=== PATIENT | female | born 1940 | race Caucasian/White ===

== ENCOUNTER 2024-05-09 16:01 | Inpatient (IN) | payer MEDICARE, OTHER ==
[~2024-05-09] VITALS: Ht 165.1 cm; Wt 81.2 kg
[2024-05-09 16:29] LABS: BASOPHILS # (AUTO) 0.1 K/uL (0.0-0.2); BASOPHILS % (AUTO) 0.4 % (0.0-2.0); HEMATOCRIT 41 % (33-45); HEMOGLOBIN 13.3 g/dL (11.5-14.8); LYMPHOCYTES # (AUTO) 1.8 K/uL (0.8-4.8); LYMPHOCYTES % (AUTO) 12.1 % (20.0-44.0); MEAN CORPUSCULAR HEMOGLOBIN 28 PG (26.0-33.0); MEAN CORPUSCULAR HGB CONC 32 g/dl (31.0-36.0); MEAN CORPUSCULAR VOLUME 87 fL (82-100); MONOCYTES # (AUTO) 1.1 K/uL (0.1-1.30); MONOCYTES % (AUTO) 7.5 % (2.0-12.0); NEUTROPHILS # (AUTO) 12.1 K/uL (1.8-8.9); PLATELET COUNT (AUTO) 305 K/uL (150-450); RED BLOOD CELL COUNT(AUTO) 4.72 MIL/uL (4.0-5.2); RED CELL DISTRIBUTION WIDTH 15.3 % (11.5-15.0); WHITE BLOOD COUNT (AUTO) 15.1 K/uL (4.3-11.0)
[2024-05-09 16:42] LABS: CALCIUM, SERUM 8.9 mg/dL (8.5-10.1); CHLORIDE 90 mmol/L (98-107); CREATININE 0.4 mg/dL (0.6-1.3); GLUCOSE 111 mg/dL (74-106); SODIUM SERUM 138 mmol/L (136-145); UREA NITROGEN, BLOOD 16 mg/dL (7-18)
[2024-05-09 16:48] LABS: ABG BASE EXCESS 18.3 mmol/L; ABG OXYGEN SATURATION 90.6 % (92.0-98.5); ABG PCO2 55.4 mmHg (35.0-45.0); ABG PH 7.521 (7.350-7.450); ABG PO2 57.6 mmHg (75.0-100.0); ABG TOTAL HEMOGLOBIN 14.4 G/dL (12.0-16.0); COHb 0.4 % (0.5-1.5); MetHb 0.4 % (0.0-1.5); O2Hb 89.9 % (94.0-97.0); SITE, ABG Right Radial; VENT MODE, BG 3 LPM NC
[2024-05-09 16:49] LABS: LACTIC ACID 1.5 mmol/L (0.4-2.0)
[2024-05-09 16:55] LABS: NT-PRO BNP 1022 pg/mL (0-125)
[2024-05-09 16:57] LABS: POTASSIUM 2.7 mmol/L (3.5-5.1)
[2024-05-09 16:58] LABS: CARBON DIOXIDE 47 mmol/L (21-32)
[2024-05-09] MEDS ORDERED: VANCOMYCIN 1 GM /D5W 250 ML PB IV ONE (17:49)
[2024-05-09] MEDS ORDERED: CEFEPIME 1 GM VIAL ONE (17:49)
[2024-05-09] MEDS: CEFEPIME 1 GM in IV D5W 50 ML IV ONE (18:00)
[2024-05-09] MEDS ORDERED: IV NS 0.9% 250 ML IV ONE (18:10)
[2024-05-09] MEDS ORDERED: IOHEXOL-300 100 ML VIAL IV ONE (18:10)
[2024-05-09] MEDS ORDERED: ONDANSETRON HCL/PF 4 MG/2 ML VIAL IVP PRN (18:30)
[2024-05-09] MEDS ORDERED: MORPHINE SULFATE INJ 2 MG/ML DISP.SYRIN IV PRN (18:30)
[2024-05-09] MEDS ORDERED: hydrALAZINE HCL IV 20 MG VIAL IV PRN (18:30)
[2024-05-09] MEDS ORDERED: ALBUTEROL FS 2.5 MG/0.5 ML VIAL.NEB NEB PRN (18:30)
[2024-05-09 18:33] LABS: ALBUMIN 2.1 g/dL (3.4-5.0); BILIRUBIN,DIRECT 0.4 mg/dL (0.0-0.2); BILIRUBIN,TOTAL 0.4 mg/dL (0.2-1.0); TOTAL PROTEIN, SERUM 6.5 g/dL (6.4-8.2)
[2024-05-09] MEDS: VANCOMYCIN 1 GM in IV D5W 250 ML IV ONE (18:53)
[2024-05-09] MEDS ORDERED: LORA-259 PO ×2 (19:08)
[2024-05-09] MEDS ORDERED: SENN-261 PO (19:08)
[2024-05-09] MEDS ORDERED: FURO40TA5 PO (19:08)
[2024-05-09] MEDS ORDERED: MELA10CA PO (19:08)
[2024-05-09] MEDS ORDERED: OMEP20CA15 PO (19:08)
[2024-05-09] MEDS ORDERED: ACET-73 PO (19:08)
[2024-05-09] MEDS ORDERED: METO50TA16 PO (19:08)
[2024-05-09] MEDS ORDERED: GABA300C PO (19:08)
[2024-05-09] MEDS ORDERED: ALBU2TAB4 PO (19:08)
[2024-05-09] MEDS ORDERED: ASPI-1420 PO (19:08)
[2024-05-09 19:10] LABS: INR 1.21 (0.91-1.10); PARTIAL THROMBOPLASTIN TIME 25.6 SEC (24.3-34.3); PROTHROMBIN TIME 12.7 SECS (9.2-11.1)
[2024-05-09] MEDS ORDERED: SENNOSIDES 8.6 MG TABLET PO PRN (19:30)
[2024-05-09] MEDS ORDERED: LORAZEPAM 1 MG TABLET PO PRN (19:30)
[2024-05-09] MEDS: FUROSEMIDE 20 MG/2 ML VIAL IV SCH (19:30)
[2024-05-09 19:50] VITALS: BP 99/65; TEMP 98.8; O2SAT 95
[2024-05-09 20:25] VITALS: O2SAT 97
[2024-05-09] MEDS: IPRATROPIUM NEB FS 0.5 MG/2.5 ML AMPUL.NEB NEB SCH (20:26)
[2024-05-09] MEDS: ALBUTEROL FS 2.5 MG/0.5 ML VIAL.NEB NEB SCH (20:27)
[2024-05-09 20:40] VITALS: O2SAT 99
[2024-05-09] MEDS: methylPREDNISolone SOD SUCC 40 MG/ML VIAL IV SCH (21:53)
[2024-05-09] MEDS: HEPARIN SODIUM, PORCINE 5000 UNITS/1 ML VIAL SQ SCH (21:54)
[2024-05-09] MEDS ORDERED: Medication Not On Formulary EA (Melatonin 10 MG) PO SCH (22:00)
[2024-05-09 22:33] LABS: APPEARANCE,URINE CLEAR (CLEAR); BILIRUBIN,URINE NEGATIVE (NEGATIVE); BLOOD, URINE NEGATIVE Ery/uL (NEGATIVE); COLOR,URINE DARK YELLOW (YELLOW); KETONES,URINE NEGATIVE (NEGATIVE); LEUKOCYTE ESTERASE ,URINE 2+ (NEGATIVE); NITRITE, URINE POSITIVE (NEGATIVE); PROTEIN,URINE NEGATIVE (NEGATIVE); UGLUCOSE NEGATIVE (NEGATIVE)
[2024-05-09] MEDS: POTASSIUM CHLORIDE 20 MEQ POWDER PACKET PO ONE (22:47)
[2024-05-09 22:48] LABS: ADD URINE CULTURE YES; BACTERIA,URINE Moderate /HPF (None Seen); RBC,URINE 0-2 /HPF (0-2); SQUAMOUS EPITHELIAL CELL,UR Rare /HPF (None Seen)
[2024-05-10] VITALS (11 sets, daily range): BP systolic 90–125; BP diastolic 68–79; TEMP 97.7–98.6; O2SAT 90–99
[2024-05-10] MEDS: CEFEPIME 1 GM in IV D5W 50 ML IV SCH (05:26)
[2024-05-10 07:16] LABS: HEMATOCRIT 39 % (33-45); HEMOGLOBIN 12.6 g/dL (11.5-14.8); LYMPHOCYTES # (AUTO) 0.8 K/uL (0.8-4.8); LYMPHOCYTES % (AUTO) 6.1 % (20.0-44.0); MEAN CORPUSCULAR HEMOGLOBIN 28 PG (26.0-33.0); MEAN CORPUSCULAR HGB CONC 33 g/dl (31.0-36.0); MEAN CORPUSCULAR VOLUME 86 fL (82-100); MONOCYTES # (AUTO) 0.4 K/uL (0.1-1.30); MONOCYTES % (AUTO) 2.7 % (2.0-12.0); NEUTROPHILS # (AUTO) 12.4 K/uL (1.8-8.9); NEUTROPHILS % (AUTO) 91.2 % (43.0-81.0); PLATELET COUNT (AUTO) 239 K/uL (150-450); RED BLOOD CELL COUNT(AUTO) 4.46 MIL/uL (4.0-5.2); RED CELL DISTRIBUTION WIDTH 15.2 % (11.5-15.0); WHITE BLOOD COUNT (AUTO) 13.6 K/uL (4.3-11.0)
[2024-05-10 07:36] LABS: ALANINE AMINOTRANSFERASE 155 U/L (12-78); ALKALINE PHOSPHATASE 85 U/L (46-116); ASPARTATE AMINOTRANSFERASE 148 U/L (15-37); BILIRUBIN,TOTAL 0.8 mg/dL (0.2-1.0); CALCIUM, SERUM 9.4 mg/dL (8.5-10.1); CHLORIDE 92 mmol/L (98-107); CREATININE 0.3 mg/dL (0.6-1.3); GLUCOSE 165 mg/dL (74-106); MAGNESIUM 2.2 mg/dL (1.8-2.4); PHOSPHORUS 2.8 mg/dL (2.5-4.9); SODIUM SERUM 136 mmol/L (136-145); TOTAL PROTEIN, SERUM 6.2 g/dL (6.4-8.2); UREA NITROGEN, BLOOD 13 mg/dL (7-18)
[2024-05-10 07:38] LABS: CARBON DIOXIDE 41 mmol/L (21-32)
[2024-05-10] MEDS: GABAPENTIN 300 MG CAPSULE PO SCH (09:24)
[2024-05-10] MEDS: PANTOPRAZOLE 40 MG TABLET.DR PO SCH (09:24)
[2024-05-10] MEDS: ASPIRIN EC 81 MG TABLET.DR PO SCH (09:25)
[2024-05-10] MEDS: METOPROLOL SUCCINATE 50 MG TAB.SR.24H PO SCH (09:26)
[2024-05-10] MEDS: THERAHONEY GEL 1.5 OZ TUBE TP SCH (10:19)
[2024-05-10] MEDS: ACETAMINOPHEN 325 MG TABLET PO PRN (10:51)
[2024-05-10] MEDS: POTASSIUM CHLORIDE 20 MEQ TAB.PRT.SR PO SCH (11:37)
[2024-05-10] MEDS: DILTIAZEM HCL CD 240 MG PO SCH (11:38)
[2024-05-10] MEDS ORDERED: LORAZEPAM 0.5 MG TABLET PO PRN (15:30)
[2024-05-10] MEDS: acetaZOLAMIDE 250 MG TABLET PO SCH (15:40)
[2024-05-11] VITALS (13 sets, daily range): BP systolic 106–132; BP diastolic 49–69; TEMP 97.5–98.6; O2SAT 90–100
[2024-05-11] MEDS ORDERED: ENOXAPARIN SODIUM 40 MG/0.4 ML DISP.SYRIN SQ SCH (09:00)
[2024-05-11 10:31] LABS: CARBON DIOXIDE 34 mmol/L (21-32); CHLORIDE 90 mmol/L (98-107); CREATININE 0.6 mg/dL (0.6-1.3); GLUCOSE 165 mg/dL (74-106); POTASSIUM 2.9 mmol/L (3.5-5.1); SODIUM SERUM 128 mmol/L (136-145); UREA NITROGEN, BLOOD 14 mg/dL (7-18)
[2024-05-11 10:35] LABS: CALCIUM, SERUM 9.3 mg/dL (8.5-10.1)
[2024-05-11 14:28] LABS: THYROID STIMULATING HORMONE 2.85 uIU/mL (0.358-3.74)
[2024-05-12] VITALS (13 sets, daily range): BP systolic 105–118; BP diastolic 57–61; TEMP 98.4–98.6; O2SAT 93–99
[2024-05-12] MEDS: POTASSIUM CHLORIDE 10 MEQ/50 ML PREMIXED IVPB FOR PERIPHERAL LINE IV ONE (06:03)
[2024-05-12 08:10] LABS: FOLIC ACID 8.5 ng/mL (>3.0)
[2024-05-12] MEDS: methylPREDNISolone SOD SUCC 40 MG/ML VIAL IV SCH (08:45)
[2024-05-12] MEDS: PROSOURCE / PROSTAT (PYXIS) 30 ML UDC PO SCH (08:45)
[2024-05-12] MEDS: ARGININE/GLUTAMINE/CALCIUM BMB 1 EACH POWD.PACK PO SCH (08:46)
[2024-05-12] MEDS: ENSURE ENLIVE 237 ML LIQUID (VANILLA) PO SCH (08:46)
[2024-05-12 09:51] LABS: BASOPHILS % (AUTO) 0.1 % (0.0-2.0); HEMATOCRIT 39 % (33-45); HEMOGLOBIN 12.8 g/dL (11.5-14.8); LYMPHOCYTES # (AUTO) 1.4 K/uL (0.8-4.8); MEAN CORPUSCULAR HEMOGLOBIN 29 PG (26.0-33.0); MEAN CORPUSCULAR HGB CONC 33 g/dl (31.0-36.0); MEAN CORPUSCULAR VOLUME 88 fL (82-100); MONOCYTES # (AUTO) 1.1 K/uL (0.1-1.30); MONOCYTES % (AUTO) 5.5 % (2.0-12.0); NEUTROPHILS # (AUTO) 17.4 K/uL (1.8-8.9); NEUTROPHILS % (AUTO) 87.4 % (43.0-81.0); PLATELET COUNT (AUTO) 261 K/uL (150-450); RED BLOOD CELL COUNT(AUTO) 4.44 MIL/uL (4.0-5.2); RED CELL DISTRIBUTION WIDTH 15.6 % (11.5-15.0); WHITE BLOOD COUNT (AUTO) 19.9 K/uL (4.3-11.0)
[2024-05-12 10:21] LABS: ALANINE AMINOTRANSFERASE 174 U/L (12-78); ALBUMIN 2.1 g/dL (3.4-5.0); ALKALINE PHOSPHATASE 86 U/L (46-116); ASPARTATE AMINOTRANSFERASE 115 U/L (15-37); BILIRUBIN,TOTAL 0.6 mg/dL (0.2-1.0); CALCIUM, SERUM 9.5 mg/dL (8.5-10.1); CARBON DIOXIDE 28 mmol/L (21-32); CHLORIDE 95 mmol/L (98-107); CREATININE 0.6 mg/dL (0.6-1.3); GLUCOSE 149 mg/dL (74-106); MAGNESIUM 2.6 mg/dL (1.8-2.4); PHOSPHORUS 2.5 mg/dL (2.5-4.9); POTASSIUM 3.3 mmol/L (3.5-5.1); SODIUM SERUM 134 mmol/L (136-145); TOTAL PROTEIN, SERUM 6.2 g/dL (6.4-8.2); UREA NITROGEN, BLOOD 13 mg/dL (7-18)
[2024-05-13] VITALS (14 sets, daily range): BP systolic 108–117; BP diastolic 55–66; TEMP 97.5–98.8; O2SAT 94–99
[2024-05-13 07:47] LABS: CARBON DIOXIDE 30 mmol/L (21-32); CHLORIDE 98 mmol/L (98-107); CREATININE 0.3 mg/dL (0.6-1.3); GLUCOSE 155 mg/dL (74-106); MAGNESIUM 2.4 mg/dL (1.8-2.4); PHOSPHORUS 2.2 mg/dL (2.5-4.9); POTASSIUM 3.5 mmol/L (3.5-5.1); SODIUM SERUM 138 mmol/L (136-145); UREA NITROGEN, BLOOD 12 mg/dL (7-18)
[2024-05-13 08:02] LABS: URIC ACID 5.6 mg/dL (2.6-7.2)
[2024-05-13 08:12] LABS: RAPID PLASMA REAGIN QUAL. Non Reactive (Non Reactive)
[2024-05-13] MEDS ORDERED: POTASSIUM PHOSPHATE MM 15 MMOL in IV NS 0.9% 250 ML IV SCH (09:00)
[2024-05-13] MEDS: POTASSIUM PHOSPHATE MM 7.5 MMOL in IV NS 0.9% 100 ML IV SCH (09:25)
[2024-05-13 10:36] LABS: BASOPHILS % (AUTO) 0.1 % (0.0-2.0); EOSINOPHILS % (AUTO) 0.1 % (0.0-6.0); HEMATOCRIT 37 % (33-45); HEMOGLOBIN 12.2 g/dL (11.5-14.8); LYMPHOCYTES # (AUTO) 1.1 K/uL (0.8-4.8); LYMPHOCYTES % (AUTO) 5.7 % (20.0-44.0); MEAN CORPUSCULAR HEMOGLOBIN 29 PG (26.0-33.0); MEAN CORPUSCULAR HGB CONC 33 g/dl (31.0-36.0); MEAN CORPUSCULAR VOLUME 88 fL (82-100); NEUTROPHILS # (AUTO) 17.4 K/uL (1.8-8.9); NEUTROPHILS % (AUTO) 89.1 % (43.0-81.0); PLATELET COUNT (AUTO) 262 K/uL (150-450); RED BLOOD CELL COUNT(AUTO) 4.25 MIL/uL (4.0-5.2); RED CELL DISTRIBUTION WIDTH 15.8 % (11.5-15.0); WHITE BLOOD COUNT (AUTO) 19.5 K/uL (4.3-11.0)
[2024-05-13 16:08] LABS: HIV-1 p24 ANTIGEN NON REACTIVE (NONREACTIVE); HIV-1/2 ANTIBODY NON REACTIVE (NONREACTIVE)
[2024-05-14 01:09] VITALS: O2SAT 94
[2024-05-14 01:11] VITALS: O2SAT 94
[2024-05-14 04:00] VITALS: BP 128/71; TEMP 98.5; O2SAT 95
[2024-05-14 08:05] VITALS: O2SAT 96
[2024-05-14 08:15] VITALS: O2SAT 98
[2024-05-14] MEDS ORDERED: CEFD300C3 PO (08:37)
[2024-05-14] MEDS ORDERED: ACID1TAB4 PO (08:37)
[2024-05-14] MEDS ORDERED: DILT-3 PO (08:37)
[2024-05-14 09:29] VITALS: BP 120/65; TEMP 98; O2SAT 94
== END 2024-05-14 09:33 | disposition home health service (06) | DRG 193 ==
LOC: ER 16:03 → TELE1 18:23 → MEDSG1 05-11 08:06
PROVIDERS: ADMIT Internal Medicine; ATTEND Nurse Practitioner Acute Care
DX: J15.9 Unspecified bacterial pneumonia (principal); G92.8 Other toxic encephalopathy; J96.21 Acute and chronic respiratory failure with hypoxia; I50.33 Acute on chronic diastolic (congestive) heart failure; J96.22 Acute and chronic respiratory failure with hypercapnia; E44.0 Moderate protein-calorie malnutrition; J44.1 Chronic obstructive pulmonary disease with (acute) exacerbation; J44.0 Chronic obstructive pulmonary disease with (acute) lower respiratory infection; D68.59 Other primary thrombophilia; E87.1 Hypo-osmolality and hyponatremia; N39.0 Urinary tract infection, site not specified; E87.4 Mixed disorder of acid-base balance; I11.0 Hypertensive heart disease with heart failure; E87.6 Hypokalemia; L89.302 Pressure ulcer of unspecified buttock, stage 2; E88.09 Other disorders of plasma-protein metabolism, not elsewhere classified; G30.9 Alzheimer's disease, unspecified; F02.80 Dementia in other diseases classified elsewhere, unspecified severity, without behavioral disturbance, psychotic disturbance, mood disturbance, and anxiety; G47.33 Obstructive sleep apnea (adult) (pediatric); I71.21 Aneurysm of the ascending aorta, without rupture; Z87.891 Personal history of nicotine dependence; Z90.49 Acquired absence of other specified parts of digestive tract; R74.01 Elevation of levels of liver transaminase levels; D72.829 Elevated white blood cell count, unspecified; Z68.29 Body mass index [BMI] 29.0-29.9, adult; Z74.09 Other reduced mobility; F09 Unspecified mental disorder due to known physiological condition; L89.322 Pressure ulcer of left buttock, stage 2; B96.20 Unspecified Escherichia coli [E. coli] as the cause of diseases classified elsewhere; K76.0 Fatty (change of) liver, not elsewhere classified; R53.1 Weakness
CPT/HCPCS: 36415; 36600; 71045-TC; 71260-TC; 76700-TC; 80048-TC; 80053-TC; 80061-TC; 80076-TC; 81001; 82607-TC; 82803-TC; 82962-TC; 83605-TC; 83735-TC; 83880; 83921; 84100-TC; 84443-TC; 84484-TC; 84550-TC; 85025-TC; 85730-TC; 86592; 86593; 86803; 87040-TC; 87086-TC; 87806; 92526; 92611-TC; 93307-TC; 94762-TC; 94799-TC; 97110-TC; 97530-TC; 97535-TC; 98960; A4223; G0378; J0692; J1644; J1940; J2270; J2919; J3370; J3480; J3490; J7030; J7050; J7060; Q9967

== ENCOUNTER 2024-06-12 15:09 | Inpatient (IN) | payer MEDICARE, OTHER ==
[~2024-06-12] VITALS: Ht 157.5 cm; Wt 82.7 kg
[~2024-06-12 15:09] MED LIST: ACET-73 PO; ACID1TAB4 PO; ALBU2TAB4 PO; ASPI-1420 PO; CEFD300C3 PO; DILT-3 PO; GABA300C PO; MELA10CA PO; METO50TA16 PO; OMEP20CA15 PO; SENN-261 PO
[2024-06-12] MEDS ORDERED: ESCI5TAB PO (15:58)
[2024-06-12] MEDS ORDERED: LORA-259 PO (15:58)
[2024-06-12 16:00] VITALS: BP 122/75; TEMP 98.6; O2SAT 90
[2024-06-12] MEDS ORDERED: ONDANSETRON HCL/PF 4 MG/2 ML VIAL IVP PRN (17:00)
[2024-06-12] MEDS: HYDROCORTISONE 1% CREAM 28.35 GM TUBE TP SCH (17:00)
[2024-06-12] MEDS ORDERED: MAGNESIUM HYDROXIDE 30 ML UDC PO PRN (17:00)
[2024-06-12] MEDS ORDERED: TEMAZEPAM 15 MG CAPSULE PO PRN (17:00)
[2024-06-12] MEDS ORDERED: Z GUARD REMEDY 4 OZ OINT TP PRN (17:00)
[2024-06-12] MEDS ORDERED: IPRATROPIUM NEB FS 0.5 MG/2.5 ML AMPUL.NEB NEB PRN (17:30)
[2024-06-12] MEDS ORDERED: ALBUTEROL FS 2.5 MG/3 ML VIAL.NEB NEB PRN (17:30)
[2024-06-12] MEDS ORDERED: SENNOSIDES 8.6 MG TABLET PO PRN (17:30)
[2024-06-12 18:20] LABS: BASOPHILS % (AUTO) 0.1 % (0.0-2.0); HEMATOCRIT 37 % (33-45); HEMOGLOBIN 11.9 g/dL (11.5-14.8); LYMPHOCYTES # (AUTO) 1.1 K/uL (0.8-4.8); MEAN CORPUSCULAR HEMOGLOBIN 29 PG (26.0-33.0); MEAN CORPUSCULAR HGB CONC 32 g/dl (31.0-36.0); MEAN CORPUSCULAR VOLUME 89 fL (82-100); MONOCYTES # (AUTO) 0.2 K/uL (0.1-1.30); MONOCYTES % (AUTO) 1.4 % (2.0-12.0); NEUTROPHILS # (AUTO) 12.7 K/uL (1.8-8.9); NEUTROPHILS % (AUTO) 90.5 % (43.0-81.0); PLATELET COUNT (AUTO) 347 K/uL (150-450); RED BLOOD CELL COUNT(AUTO) 4.17 MIL/uL (4.0-5.2); RED CELL DISTRIBUTION WIDTH 15.4 % (11.5-15.0); WHITE BLOOD COUNT (AUTO) 14.1 K/uL (4.3-11.0)
[2024-06-12 18:34] LABS: ALANINE AMINOTRANSFERASE 115 U/L (12-78); ALBUMIN 1.9 g/dL (3.4-5.0); ALKALINE PHOSPHATASE 111 U/L (46-116); ASPARTATE AMINOTRANSFERASE 100 U/L (15-37); BILIRUBIN,TOTAL 0.3 mg/dL (0.2-1.0); CALCIUM, SERUM 8.5 mg/dL (8.5-10.1); CARBON DIOXIDE 32 mmol/L (21-32); CHLORIDE 106 mmol/L (98-107); CREATININE 0.3 mg/dL (0.6-1.3); GLUCOSE 173 mg/dL (74-106); MAGNESIUM 2.2 mg/dL (1.8-2.4); POTASSIUM 4.4 mmol/L (3.5-5.1); SODIUM SERUM 142 mmol/L (136-145); UREA NITROGEN, BLOOD 11 mg/dL (7-18)
[2024-06-12 18:39] LABS: IRON, SERUM 53 ug/dl (50-175); TOTAL IRON BINDING CAPACITY 195 ug/dl (250-450)
[2024-06-12 18:49] LABS: FERRITIN 296 ng/mL (8-388)
[2024-06-12 18:57] LABS: ERYTHROCYTE SEDIMENTATION RATE 50 MM/HR (0-30)
[2024-06-12] MEDS: ACETAMINOPHEN 325 MG TABLET PO PRN (19:32)
[2024-06-12] MEDS: ENOXAPARIN SODIUM 40 MG/0.4 ML DISP.SYRIN SQ SCH (20:10)
[2024-06-12] MEDS: METOPROLOL TARTRATE 50 MG TABLET PO SCH (20:10)
[2024-06-12 20:16] VITALS: BP 128/83; TEMP 98.6; O2SAT 91
[2024-06-12] MEDS ORDERED: MEROPENEM 1 G in IV NS 0.9% 100 ML IV SCH (21:00)
[2024-06-12] MEDS ORDERED: MEROPENEM 1 G VIAL IV ONE (21:37)
[2024-06-12] MEDS: MEROPENEM 1 G in IV NS 0.9% 100 ML IV SCH (22:15)
[2024-06-13] MEDS: diphenhydrAMINE HCL ELIX 25 MG/10 ML UDC PO PRN (01:01)
[2024-06-13 01:43] LABS: ADD URINE CULTURE YES; APPEARANCE,URINE TURBID (CLEAR); BACTERIA,URINE Moderate /HPF (None Seen); BILIRUBIN,URINE NEGATIVE (NEGATIVE); BLOOD, URINE TRACE-INTA Ery/uL (NEGATIVE); COLOR,URINE DARK YELLOW (YELLOW); KETONES,URINE TRACE mg/dL (NEGATIVE); LEUKOCYTE ESTERASE ,URINE TRACE (NEGATIVE); NITRITE, URINE NEGATIVE (NEGATIVE); PH,URINE 5.5 (5.0-8.0); PROTEIN,URINE 1+ mg/dl (NEGATIVE); SQUAMOUS EPITHELIAL CELL,UR Few /HPF (None Seen); UGLUCOSE NEGATIVE (NEGATIVE)
[2024-06-13 06:59] LABS: BASOPHILS % (AUTO) 0.1 % (0.0-2.0); HEMATOCRIT 38 % (33-45); HEMOGLOBIN 12.2 g/dL (11.5-14.8); LYMPHOCYTES # (AUTO) 1.2 K/uL (0.8-4.8); LYMPHOCYTES % (AUTO) 6.5 % (20.0-44.0); MEAN CORPUSCULAR HEMOGLOBIN 29 PG (26.0-33.0); MEAN CORPUSCULAR HGB CONC 32 g/dl (31.0-36.0); MEAN CORPUSCULAR VOLUME 89 fL (82-100); MONOCYTES # (AUTO) 0.5 K/uL (0.1-1.30); MONOCYTES % (AUTO) 2.5 % (2.0-12.0); NEUTROPHILS # (AUTO) 16.8 K/uL (1.8-8.9); NEUTROPHILS % (AUTO) 90.9 % (43.0-81.0); PLATELET COUNT (AUTO) 372 K/uL (150-450); RED BLOOD CELL COUNT(AUTO) 4.23 MIL/uL (4.0-5.2); WHITE BLOOD COUNT (AUTO) 18.5 K/uL (4.3-11.0)
[2024-06-13 07:16] LABS: CALCIUM, SERUM 8.9 mg/dL (8.5-10.1); CARBON DIOXIDE 31 mmol/L (21-32); CHLORIDE 104 mmol/L (98-107); CREATININE 0.3 mg/dL (0.6-1.3); GLUCOSE 138 mg/dL (74-106); MAGNESIUM 2.2 mg/dL (1.8-2.4); PHOSPHORUS 3.1 mg/dL (2.5-4.9); SODIUM SERUM 139 mmol/L (136-145); UREA NITROGEN, BLOOD 11 mg/dL (7-18)
[2024-06-13 07:30] VITALS: BP 126/68; O2SAT 91
[2024-06-13] MEDS: PANTOPRAZOLE 40 MG TABLET.DR PO SCH (09:08)
[2024-06-13] MEDS: GABAPENTIN 300 MG CAPSULE PO SCH (10:32)
[2024-06-13] MEDS: ESCITALOPRAM OXALATE (10 MG) 10 MG TABLET PO SCH (10:34)
[2024-06-13] MEDS: ASPIRIN EC 81 MG TABLET.DR PO SCH (10:35)
[2024-06-13] MEDS: DILTIAZEM HCL CD 240 MG PO SCH (10:35)
[2024-06-13] MEDS: CLOTRIMAZOLE 1% 15 GM TUBE TP SCH (10:36)
[2024-06-13] MEDS ORDERED: HYDROCODONE/APAP 5/325MG TABLET PO PRN (12:00)
[2024-06-13] MEDS: MEROPENEM 1 G in IV NS 0.9% 100 ML IV SCH (13:07)
[2024-06-13 16:00] VITALS: BP 118/71; TEMP 98.6; O2SAT 96
[2024-06-13] MEDS: PREGABALIN 25 MG CAPSULE PO SCH (17:54)
[2024-06-13 20:00] VITALS: BP 116/67; TEMP 98.4; O2SAT 95
[2024-06-14 06:48] LABS: HEMATOCRIT 39 % (33-45); HEMOGLOBIN 12.3 g/dL (11.5-14.8); LYMPHOCYTES % (AUTO) 7.1 % (20.0-44.0); MEAN CORPUSCULAR HEMOGLOBIN 29 PG (26.0-33.0); MEAN CORPUSCULAR HGB CONC 32 g/dl (31.0-36.0); MEAN CORPUSCULAR VOLUME 89 fL (82-100); MONOCYTES # (AUTO) 0.7 K/uL (0.1-1.30); MONOCYTES % (AUTO) 5.5 % (2.0-12.0); NEUTROPHILS # (AUTO) 11.7 K/uL (1.8-8.9); NEUTROPHILS % (AUTO) 87.4 % (43.0-81.0); PLATELET COUNT (AUTO) 297 K/uL (150-450); RED BLOOD CELL COUNT(AUTO) 4.32 MIL/uL (4.0-5.2); RED CELL DISTRIBUTION WIDTH 15.3 % (11.5-15.0); WHITE BLOOD COUNT (AUTO) 13.4 K/uL (4.3-11.0)
[2024-06-14 07:12] LABS: CALCIUM, SERUM 8.7 mg/dL (8.5-10.1); CARBON DIOXIDE 28 mmol/L (21-32); CHLORIDE 107 mmol/L (98-107); CREATININE 0.3 mg/dL (0.6-1.3); GLUCOSE 89 mg/dL (74-106); MAGNESIUM 2.2 mg/dL (1.8-2.4); PHOSPHORUS 3.1 mg/dL (2.5-4.9); POTASSIUM 3.2 mmol/L (3.5-5.1); SODIUM SERUM 144 mmol/L (136-145); UREA NITROGEN, BLOOD 14 mg/dL (7-18)
[2024-06-14 08:08] VITALS: O2SAT 96
[2024-06-14] MEDS: POTASSIUM CHLORIDE 20 MEQ TAB.PRT.SR PO ONE (11:54)
[2024-06-14 16:00] VITALS: BP 98/60; TEMP 98.8; O2SAT 95
[2024-06-14] MEDS: PROSOURCE / PROSTAT (PYXIS) 30 ML UDC PO SCH (18:25)
[2024-06-14 19:19] VITALS: BP 100/52; TEMP 97.7; O2SAT 95
[2024-06-14 20:30] VITALS: BP 105/61; TEMP 97.3; O2SAT 96
[2024-06-15 08:00] VITALS: BP 111/81; TEMP 98.1; O2SAT 96
[2024-06-15] MEDS: ENSURE ENLIVE 237 ML LIQUID (VANILLA) PO SCH (09:05)
[2024-06-15 10:01] LABS: BASOPHILS # (AUTO) 0.1 K/uL (0.0-0.2); BASOPHILS % (AUTO) 0.9 % (0.0-2.0); EOSINOPHILS # (AUTO) 0.1 K/uL (0.0-0.7); EOSINOPHILS % (AUTO) 0.8 % (0.0-6.0); HEMATOCRIT 41 % (33-45); HEMOGLOBIN 13.1 g/dL (11.5-14.8); LYMPHOCYTES # (AUTO) 1.8 K/uL (0.8-4.8); LYMPHOCYTES % (AUTO) 12.4 % (20.0-44.0); MEAN CORPUSCULAR HEMOGLOBIN 29 PG (26.0-33.0); MEAN CORPUSCULAR HGB CONC 32 g/dl (31.0-36.0); MEAN CORPUSCULAR VOLUME 89 fL (82-100); MONOCYTES # (AUTO) 1.1 K/uL (0.1-1.30); MONOCYTES % (AUTO) 7.4 % (2.0-12.0); NEUTROPHILS # (AUTO) 11.4 K/uL (1.8-8.9); NEUTROPHILS % (AUTO) 78.5 % (43.0-81.0); PLATELET COUNT (AUTO) 334 K/uL (150-450); RED BLOOD CELL COUNT(AUTO) 4.57 MIL/uL (4.0-5.2); RED CELL DISTRIBUTION WIDTH 15.8 % (11.5-15.0); WHITE BLOOD COUNT (AUTO) 14.5 K/uL (4.3-11.0)
[2024-06-15 10:07] LABS: CALCIUM, SERUM 8.7 mg/dL (8.5-10.1); CARBON DIOXIDE 30 mmol/L (21-32); CHLORIDE 109 mmol/L (98-107); CREATININE 0.4 mg/dL (0.6-1.3); GLUCOSE 104 mg/dL (74-106); SODIUM SERUM 144 mmol/L (136-145); UREA NITROGEN, BLOOD 12 mg/dL (7-18)
[2024-06-15 10:13] LABS: ALANINE AMINOTRANSFERASE 250 U/L (12-78); ALBUMIN 1.9 g/dL (3.4-5.0); ALKALINE PHOSPHATASE 119 U/L (46-116); ASPARTATE AMINOTRANSFERASE 300 U/L (15-37); BILIRUBIN,TOTAL 0.6 mg/dL (0.2-1.0); TOTAL PROTEIN, SERUM 5.6 g/dL (6.4-8.2)
[2024-06-15 16:00] VITALS: BP 93/62; TEMP 98.1; O2SAT 95
[2024-06-15 20:00] VITALS: BP 106/64; TEMP 98.1; O2SAT 97
[2024-06-16 07:21] LABS: BASOPHILS # (AUTO) 0.1 K/uL (0.0-0.2); BASOPHILS % (AUTO) 0.4 % (0.0-2.0); EOSINOPHILS # (AUTO) 0.4 K/uL (0.0-0.7); EOSINOPHILS % (AUTO) 2.9 % (0.0-6.0); HEMATOCRIT 40 % (33-45); HEMOGLOBIN 12.6 g/dL (11.5-14.8); LYMPHOCYTES # (AUTO) 2.2 K/uL (0.8-4.8); LYMPHOCYTES % (AUTO) 17.8 % (20.0-44.0); MEAN CORPUSCULAR HEMOGLOBIN 28 PG (26.0-33.0); MEAN CORPUSCULAR HGB CONC 32 g/dl (31.0-36.0); MEAN CORPUSCULAR VOLUME 89 fL (82-100); MONOCYTES # (AUTO) 0.9 K/uL (0.1-1.30); MONOCYTES % (AUTO) 7.6 % (2.0-12.0); NEUTROPHILS # (AUTO) 8.9 K/uL (1.8-8.9); NEUTROPHILS % (AUTO) 71.3 % (43.0-81.0); PLATELET COUNT (AUTO) 281 K/uL (150-450); RED BLOOD CELL COUNT(AUTO) 4.49 MIL/uL (4.0-5.2); RED CELL DISTRIBUTION WIDTH 15.2 % (11.5-15.0); WHITE BLOOD COUNT (AUTO) 12.5 K/uL (4.3-11.0)
[2024-06-16 07:56] LABS: ALANINE AMINOTRANSFERASE 262 U/L (12-78); ALBUMIN 1.7 g/dL (3.4-5.0); ALKALINE PHOSPHATASE 113 U/L (46-116); ASPARTATE AMINOTRANSFERASE 232 U/L (15-37); BILIRUBIN,TOTAL 0.4 mg/dL (0.2-1.0); CALCIUM, SERUM 8.4 mg/dL (8.5-10.1); CARBON DIOXIDE 34 mmol/L (21-32); CHLORIDE 108 mmol/L (98-107); CREATININE 0.4 mg/dL (0.6-1.3); GLUCOSE 81 mg/dL (74-106); POTASSIUM 4.3 mmol/L (3.5-5.1); SODIUM SERUM 144 mmol/L (136-145); TOTAL PROTEIN, SERUM 5.3 g/dL (6.4-8.2); UREA NITROGEN, BLOOD 12 mg/dL (7-18)
[2024-06-16 08:00] VITALS: BP 113/58; TEMP 98.4; O2SAT 95
[2024-06-16 11:22] VITALS: O2SAT 94
[2024-06-16] MEDS ORDERED: LORAZEPAM INJ 2 MG/ML VIAL IV ONE (12:00)
[2024-06-16] MEDS: LORAZEPAM INJ 2 MG/ML VIAL IM ONE (12:11)
[2024-06-16 16:00] VITALS: BP 91/72; TEMP 98.3; O2SAT 95
[2024-06-16 20:25] VITALS: BP 116/87; TEMP 97.9; O2SAT 96
[2024-06-16 21:16] VITALS: BP 123/85; TEMP 98; O2SAT 98
[2024-06-17 07:09] LABS: BASOPHILS % (AUTO) 0.3 % (0.0-2.0); EOSINOPHILS # (AUTO) 0.4 K/uL (0.0-0.7); EOSINOPHILS % (AUTO) 2.9 % (0.0-6.0); HEMATOCRIT 39 % (33-45); HEMOGLOBIN 12.6 g/dL (11.5-14.8); LYMPHOCYTES # (AUTO) 2.2 K/uL (0.8-4.8); LYMPHOCYTES % (AUTO) 16.3 % (20.0-44.0); MEAN CORPUSCULAR HEMOGLOBIN 29 PG (26.0-33.0); MEAN CORPUSCULAR HGB CONC 32 g/dl (31.0-36.0); MEAN CORPUSCULAR VOLUME 89 fL (82-100); MONOCYTES # (AUTO) 1.1 K/uL (0.1-1.30); MONOCYTES % (AUTO) 8.2 % (2.0-12.0); NEUTROPHILS # (AUTO) 9.7 K/uL (1.8-8.9); NEUTROPHILS % (AUTO) 72.3 % (43.0-81.0); PLATELET COUNT (AUTO) 300 K/uL (150-450); RED BLOOD CELL COUNT(AUTO) 4.41 MIL/uL (4.0-5.2); RED CELL DISTRIBUTION WIDTH 15.2 % (11.5-15.0); WHITE BLOOD COUNT (AUTO) 13.4 K/uL (4.3-11.0)
[2024-06-17 07:30] LABS: ALANINE AMINOTRANSFERASE 207 U/L (12-78); ALBUMIN 1.8 g/dL (3.4-5.0); ALKALINE PHOSPHATASE 115 U/L (46-116); ASPARTATE AMINOTRANSFERASE 137 U/L (15-37); BILIRUBIN,TOTAL 0.5 mg/dL (0.2-1.0); CALCIUM, SERUM 8.8 mg/dL (8.5-10.1); CARBON DIOXIDE 32 mmol/L (21-32); CHLORIDE 103 mmol/L (98-107); CREATININE 0.4 mg/dL (0.6-1.3); GLUCOSE 99 mg/dL (74-106); SODIUM SERUM 139 mmol/L (136-145); TOTAL PROTEIN, SERUM 5.4 g/dL (6.4-8.2); UREA NITROGEN, BLOOD 9 mg/dL (7-18)
[2024-06-17 08:00] VITALS: BP 132/81; TEMP 98.8; O2SAT 100
[2024-06-17 09:35] VITALS: BP 132/81
[2024-06-17] MEDS ORDERED: PREG25CA PO (09:56)
[2024-06-17] MEDS ORDERED: METH4TAB3 PO (09:56)
[2024-06-18 06:08] LABS: HEPATITIS B CORE AB, TOTAL Negative (Negative); HEPATITIS B SURFACE AB Non Reactive (.)
[2024-06-18 14:07] LABS: HIV-1 p24 ANTIGEN NON REACTIVE (NONREACTIVE); HIV-1/2 ANTIBODY NON REACTIVE (NONREACTIVE)
== END 2024-06-17 16:00 | DRG 871 ==
LOC: MED 15:09
PROVIDERS: ADMIT Nurse Practitioner Family; ATTEND Internal Medicine
DX: A41.9 Sepsis, unspecified organism (principal); G93.41 Metabolic encephalopathy; I50.32 Chronic diastolic (congestive) heart failure; N39.0 Urinary tract infection, site not specified; F03.90 Unspecified dementia, unspecified severity, without behavioral disturbance, psychotic disturbance, mood disturbance, and anxiety; I11.0 Hypertensive heart disease with heart failure; J44.9 Chronic obstructive pulmonary disease, unspecified; Z87.440 Personal history of urinary (tract) infections; Z87.891 Personal history of nicotine dependence; B95.2 Enterococcus as the cause of diseases classified elsewhere; Z86.19 Personal history of other infectious and parasitic diseases; L27.1 Localized skin eruption due to drugs and medicaments taken internally; T37.0X5A Adverse effect of sulfonamides, initial encounter; Y92.89 Other specified places as the place of occurrence of the external cause; K76.0 Fatty (change of) liver, not elsewhere classified; R74.01 Elevation of levels of liver transaminase levels; Z20.822 Contact with and (suspected) exposure to COVID-19
CPT/HCPCS: 36415; 71045-TC; 74181-TC; 76700-TC; 76770-TC; 80048-TC; 80053-TC; 81001; 82728-TC; 83540-TC; 83735-TC; 84100-TC; 84443-TC; 85025-TC; 85652-TC; 86704; 86706; 86803; 87040-TC; 87086-TC; 87340; 87806; 94762-TC; 94799-TC; 97110-TC; 97530-TC; A4223; G0378; J1650; J2060; J2185; J7030; J7050; Q0163

== ENCOUNTER 2024-06-18 21:47 | Inpatient (IN) | payer MEDICARE, OTHER ==
[~2024-06-18] VITALS: Ht 154.9 cm; Wt 89.8 kg
[~2024-06-18 21:47] MED LIST changes: -ACID1TAB4 PO; -CEFD300C3 PO; +ESCI5TAB PO; +LORA-259 PO; +METH4TAB3 PO; +PREG25CA PO
[2024-06-18 22:52] LABS: BASOPHILS # (AUTO) 0.1 K/uL (0.0-0.2); BASOPHILS % (AUTO) 0.6 % (0.0-2.0); HEMATOCRIT 36 % (33-45); HEMOGLOBIN 11.5 g/dL (11.5-14.8); LYMPHOCYTES # (AUTO) 0.7 K/uL (0.8-4.8); LYMPHOCYTES % (AUTO) 4.6 % (20.0-44.0); MEAN CORPUSCULAR HEMOGLOBIN 29 PG (26.0-33.0); MEAN CORPUSCULAR HGB CONC 32 g/dl (31.0-36.0); MEAN CORPUSCULAR VOLUME 90 fL (82-100); MONOCYTES # (AUTO) 0.4 K/uL (0.1-1.30); MONOCYTES % (AUTO) 2.9 % (2.0-12.0); NEUTROPHILS % (AUTO) 91.9 % (43.0-81.0); PLATELET COUNT (AUTO) 253 K/uL (150-450); RED BLOOD CELL COUNT(AUTO) 4.02 MIL/uL (4.0-5.2); RED CELL DISTRIBUTION WIDTH 15.7 % (11.5-15.0); WHITE BLOOD COUNT (AUTO) 15.3 K/uL (4.3-11.0)
[2024-06-18 22:57] LABS: INR 1.13 (0.91-1.10); PROTHROMBIN TIME 11.9 SECS (9.2-11.1)
[2024-06-18 23:08] LABS: CALCIUM, SERUM 8.7 mg/dL (8.5-10.1); CARBON DIOXIDE 37 mmol/L (21-32); CHLORIDE 107 mmol/L (98-107); CREATININE 0.4 mg/dL (0.6-1.3); GLUCOSE 191 mg/dL (74-106); POTASSIUM 4.3 mmol/L (3.5-5.1); SODIUM SERUM 144 mmol/L (136-145); UREA NITROGEN, BLOOD 7 mg/dL (7-18)
[2024-06-18 23:19] LABS: LACTIC ACID 2.9 mmol/L (0.4-2.0)
[2024-06-18 23:22] LABS: ALANINE AMINOTRANSFERASE 152 U/L (12-78); ALBUMIN 1.6 g/dL (3.4-5.0); ALKALINE PHOSPHATASE 105 U/L (46-116); ASPARTATE AMINOTRANSFERASE 72 U/L (15-37); BILIRUBIN,TOTAL 0.3 mg/dL (0.2-1.0); NT-PRO BNP 5790 pg/mL (0-125); TOTAL PROTEIN, SERUM 5.3 g/dL (6.4-8.2)
[2024-06-18] MEDS ORDERED: PIPERACI/TAZO 3.375GM/D5W 50ML PB IV ONE (23:32)
[2024-06-18] MEDS: IV NS 0.9% 1,000 ML IV ONE ×2 (23:34)
[2024-06-18] MEDS: PIPERACILLIN /TAZOBACTAM 3.375 G in IV D5W 50 ML IV ONE (23:34)
[2024-06-19] LABS: APPEARANCE,URINE TURBID (CLEAR); BILIRUBIN,URINE NEGATIVE (NEGATIVE); BLOOD, URINE 3+ Ery/uL (NEGATIVE); COLOR,URINE RED (YELLOW); KETONES,URINE TRACE mg/dL (NEGATIVE); LEUKOCYTE ESTERASE ,URINE 1+ (NEGATIVE); NITRITE, URINE POSITIVE (NEGATIVE); PROTEIN,URINE 2+ mg/dl (NEGATIVE); UGLUCOSE NEGATIVE (NEGATIVE)
[2024-06-19 00:36] LABS: ADD URINE CULTURE YES; BACTERIA,URINE 3+ /HPF (None Seen); MUCUS,URINE Moderate /LPF (None Seen); RBC,URINE TOO NUMEROUS TO COUN /HPF (0-2)
[2024-06-19 00:52] LABS: LYMPHOCYTES % (MANUAL) 2 % (16-48); METAMYELOCYTES % 1 % (0-0); MONOCYTES % (MANUAL) 5 % (0-11.0); MYELOCYTES % 1 % (0-0); NEUTROPHILS % (MANUAL) 91 (42-76); PLATELET ESTIMATE ADEQUATE
[2024-06-19] MEDS ORDERED: SENNOSIDES 8.6 MG TABLET PO PRN (01:00)
[2024-06-19] MEDS ORDERED: methylPREDNISolone DOSPAK(4MG) 1 PACK TAB.DS.PK PO SCH (01:00)
[2024-06-19] MEDS ORDERED: MAGNESIUM HYDROXIDE 30 ML UDC PO PRN (01:00)
[2024-06-19] MEDS ORDERED: LORAZEPAM 1 MG TABLET PO PRN (01:00)
[2024-06-19] MEDS ORDERED: MAG HYDROX/AL HYDROX/SIMETH 30 ML UDC PO PRN (01:00)
[2024-06-19] MEDS ORDERED: ACETAMINOPHEN 650 MG/SUPP.RECT RC PRN (01:00)
[2024-06-19] MEDS ORDERED: Medication Not On Formulary EA (Melatonin 10 MG) PO PRN (01:00)
[2024-06-19] MEDS ORDERED: Z GUARD REMEDY 4 OZ OINT TP PRN (01:00)
[2024-06-19] MEDS ORDERED: ONDANSETRON HCL/PF 4 MG/2 ML VIAL IVP PRN (01:00)
[2024-06-19 01:52] LABS: BILIRUBIN,DIRECT 0.2 mg/dL (0.0-0.2)
[2024-06-19 01:55] LABS: LACTIC ACID REFLEX 1.3 mmol/L (0.4-1.9)
[2024-06-19 03:00] VITALS: BP 112/54; TEMP 98.2; O2SAT 94
[2024-06-19] MEDS ORDERED: VANCOMYCIN 1 GM /D5W 250 ML PB IV ONE (03:49)
[2024-06-19] MEDS: VANCOMYCIN 1 GM in IV D5W 250ml IV ONE (03:53)
[2024-06-19] MEDS ORDERED: PIPERACI/TAZO 3.375GM/D5W 50ML PB IV ONE (05:52)
[2024-06-19] MEDS: PIPERACILLIN /TAZOBACTAM 3.375 G in IV D5W 50 ML IV SCH (05:59)
[2024-06-19 08:25] VITALS: BP 143/74; TEMP 98.2; O2SAT 98
[2024-06-19] MEDS: DILTIAZEM HCL CD 240 MG PO SCH (08:28)
[2024-06-19] MEDS: METOPROLOL TARTRATE 50 MG TABLET PO SCH (08:28)
[2024-06-19] MEDS: PANTOPRAZOLE 40 MG TABLET.DR PO SCH (08:29)
[2024-06-19] MEDS: ESCITALOPRAM OXALATE (10 MG) 10 MG TABLET PO SCH (08:29)
[2024-06-19] MEDS: GABAPENTIN 300 MG CAPSULE PO SCH (08:29)
[2024-06-19] MEDS: PREGABALIN 25 MG CAPSULE PO SCH (08:29)
[2024-06-19] MEDS: MEROPENEM 1 G in IV NS 0.9% 100 ML IV SCH (08:30)
[2024-06-19] MEDS: ALBUTEROL SULFATE 2 MG TABLET PO SCH (08:50)
[2024-06-19] MEDS ORDERED: PANTOPRAZOLE 40 MG VIAL IV SCH (09:00)
[2024-06-19] MEDS: predniSONE 20 MG TABLET PO SCH (12:21)
[2024-06-19] MEDS ORDERED: PIPERACILLIN /TAZOBACTAM 3.375 G in IV D5W 50 ML IV SCH (14:00)
[2024-06-19] MEDS ORDERED: VANCOMYCIN HCL 1.25 GM in IV D5W 250 ML IV SCH (16:00)
[2024-06-19 16:04] VITALS: BP 107/56; TEMP 98.6; O2SAT 95
[2024-06-19 20:00] VITALS: BP 112/66; TEMP 97.7; O2SAT 95
[2024-06-20] VITALS: BP 112/62; TEMP 98.6; O2SAT 94
[2024-06-20 06:45] LABS: BASOPHILS % (AUTO) 0.1 % (0.0-2.0); EOSINOPHILS % (AUTO) 0.1 % (0.0-6.0); HEMATOCRIT 34 % (33-45); HEMOGLOBIN 10.8 g/dL (11.5-14.8); LYMPHOCYTES # (AUTO) 1.3 K/uL (0.8-4.8); LYMPHOCYTES % (AUTO) 11.8 % (20.0-44.0); MEAN CORPUSCULAR HEMOGLOBIN 29 PG (26.0-33.0); MEAN CORPUSCULAR HGB CONC 32 g/dl (31.0-36.0); MEAN CORPUSCULAR VOLUME 91 fL (82-100); MONOCYTES # (AUTO) 0.9 K/uL (0.1-1.30); MONOCYTES % (AUTO) 8.1 % (2.0-12.0); NEUTROPHILS # (AUTO) 8.9 K/uL (1.8-8.9); NEUTROPHILS % (AUTO) 79.9 % (43.0-81.0); PLATELET COUNT (AUTO) 235 K/uL (150-450); RED BLOOD CELL COUNT(AUTO) 3.69 MIL/uL (4.0-5.2); WHITE BLOOD COUNT (AUTO) 11.2 K/uL (4.3-11.0)
[2024-06-20 07:00] LABS: ALANINE AMINOTRANSFERASE 120 U/L (12-78); ALBUMIN 1.7 g/dL (3.4-5.0); ALKALINE PHOSPHATASE 86 U/L (46-116); ASPARTATE AMINOTRANSFERASE 59 U/L (15-37); BILIRUBIN,DIRECT 0.1 mg/dL (0.0-0.2); BILIRUBIN,TOTAL 0.4 mg/dL (0.2-1.0); CALCIUM, SERUM 8.7 mg/dL (8.5-10.1); CARBON DIOXIDE 32 mmol/L (21-32); CHLORIDE 108 mmol/L (98-107); CREATININE 0.3 mg/dL (0.6-1.3); GLUCOSE 83 mg/dL (74-106); MAGNESIUM 2.1 mg/dL (1.8-2.4); PHOSPHORUS 2.7 mg/dL (2.5-4.9); POTASSIUM 3.8 mmol/L (3.5-5.1); SODIUM SERUM 142 mmol/L (136-145); TOTAL PROTEIN, SERUM 5.2 g/dL (6.4-8.2); UREA NITROGEN, BLOOD 5 mg/dL (7-18)
[2024-06-20 07:36] LABS: NT-PRO BNP 2584 pg/mL (0-125)
[2024-06-20 08:00] VITALS: BP 124/67; TEMP 98.4; O2SAT 96
[2024-06-20 08:21] VITALS: O2SAT 93
[2024-06-20 12:00] VITALS: BP 116/60; TEMP 99.3; O2SAT 96
[2024-06-20 16:00] VITALS: BP 108/54; TEMP 99.9; O2SAT 96
[2024-06-20 20:00] VITALS: BP 100/82; TEMP 98.2; O2SAT 96
[2024-06-21] VITALS: BP 133/71; TEMP 98.6; O2SAT 95
[2024-06-21 04:19] VITALS: BP 111/79; TEMP 98.2; O2SAT 96
[2024-06-21 06:57] LABS: BASOPHILS % (AUTO) 0.2 % (0.0-2.0); EOSINOPHILS % (AUTO) 0.4 % (0.0-6.0); HEMATOCRIT 34 % (33-45); HEMOGLOBIN 10.7 g/dL (11.5-14.8); LYMPHOCYTES # (AUTO) 1.8 K/uL (0.8-4.8); LYMPHOCYTES % (AUTO) 14.6 % (20.0-44.0); MEAN CORPUSCULAR HEMOGLOBIN 29 PG (26.0-33.0); MEAN CORPUSCULAR HGB CONC 32 g/dl (31.0-36.0); MEAN CORPUSCULAR VOLUME 90 fL (82-100); MONOCYTES # (AUTO) 1.3 K/uL (0.1-1.30); MONOCYTES % (AUTO) 10.2 % (2.0-12.0); NEUTROPHILS # (AUTO) 9.2 K/uL (1.8-8.9); NEUTROPHILS % (AUTO) 74.6 % (43.0-81.0); PLATELET COUNT (AUTO) 236 K/uL (150-450); RED BLOOD CELL COUNT(AUTO) 3.71 MIL/uL (4.0-5.2); RED CELL DISTRIBUTION WIDTH 15.6 % (11.5-15.0); WHITE BLOOD COUNT (AUTO) 12.4 K/uL (4.3-11.0)
[2024-06-21 07:09] LABS: CALCIUM, SERUM 9.4 mg/dL (8.5-10.1); CARBON DIOXIDE 30 mmol/L (21-32); CHLORIDE 106 mmol/L (98-107); CREATININE 0.3 mg/dL (0.6-1.3); GLUCOSE 77 mg/dL (74-106); PHOSPHORUS 2.3 mg/dL (2.5-4.9); POTASSIUM 3.7 mmol/L (3.5-5.1); SODIUM SERUM 141 mmol/L (136-145); UREA NITROGEN, BLOOD 9 mg/dL (7-18)
[2024-06-21 08:00] VITALS: BP 130/111; TEMP 97.9; O2SAT 94
[2024-06-21 10:55] LABS: ALBUMIN 1.7 g/dL (3.4-5.0); BILIRUBIN,DIRECT 0.2 mg/dL (0.0-0.2); BILIRUBIN,TOTAL 0.4 mg/dL (0.2-1.0); TOTAL PROTEIN, SERUM 5.4 g/dL (6.4-8.2)
[2024-06-21] MEDS ORDERED: diphenhydrAMINE HCL ELIX 25 MG/10 ML UDC PO PRN (11:00)
[2024-06-21 12:00] VITALS: BP 105/54; TEMP 98.4; O2SAT 93
[2024-06-21 16:00] VITALS: BP 120/54; TEMP 99.3; O2SAT 97
[2024-06-21] MEDS: K PHOS NEUTRAL 250 MG TABLET PO ONE (17:28)
[2024-06-21] MEDS: CLOTRIMAZOLE/BETAMETASONE DIPROPIONATE 15 GM TUBE TP SCH (17:30)
[2024-06-21 20:00] VITALS: BP 119/70; TEMP 99.1; O2SAT 98
[2024-06-22] VITALS: BP 104/63; TEMP 99.3; O2SAT 95
[2024-06-22 04:00] VITALS: BP 118/61; TEMP 98.6; O2SAT 95
[2024-06-22 06:54] LABS: BASOPHILS % (AUTO) 0.2 % (0.0-2.0); EOSINOPHILS % (AUTO) 0.3 % (0.0-6.0); HEMATOCRIT 33 % (33-45); HEMOGLOBIN 10.4 g/dL (11.5-14.8); LYMPHOCYTES # (AUTO) 1.9 K/uL (0.8-4.8); LYMPHOCYTES % (AUTO) 15.2 % (20.0-44.0); MEAN CORPUSCULAR HEMOGLOBIN 29 PG (26.0-33.0); MEAN CORPUSCULAR HGB CONC 31 g/dl (31.0-36.0); MEAN CORPUSCULAR VOLUME 91 fL (82-100); MONOCYTES # (AUTO) 1.1 K/uL (0.1-1.30); MONOCYTES % (AUTO) 8.8 % (2.0-12.0); NEUTROPHILS # (AUTO) 9.5 K/uL (1.8-8.9); NEUTROPHILS % (AUTO) 75.5 % (43.0-81.0); PLATELET COUNT (AUTO) 211 K/uL (150-450); RED BLOOD CELL COUNT(AUTO) 3.61 MIL/uL (4.0-5.2); WHITE BLOOD COUNT (AUTO) 12.5 K/uL (4.3-11.0)
[2024-06-22 07:30] VITALS: BP 132/67; TEMP 99; O2SAT 96
[2024-06-22 07:31] VITALS: O2SAT 97
[2024-06-22 07:33] LABS: ALANINE AMINOTRANSFERASE 116 U/L (12-78); ALBUMIN 1.6 g/dL (3.4-5.0); ALKALINE PHOSPHATASE 81 U/L (46-116); ASPARTATE AMINOTRANSFERASE 58 U/L (15-37); BILIRUBIN,DIRECT 0.2 mg/dL (0.0-0.2); BILIRUBIN,TOTAL 0.3 mg/dL (0.2-1.0); CALCIUM, SERUM 8.6 mg/dL (8.5-10.1); CARBON DIOXIDE 33 mmol/L (21-32); CHLORIDE 108 mmol/L (98-107); CREATININE 0.3 mg/dL (0.6-1.3); GLUCOSE 64 mg/dL (74-106); MAGNESIUM 2.1 mg/dL (1.8-2.4); PHOSPHORUS 2.7 mg/dL (2.5-4.9); POTASSIUM 3.2 mmol/L (3.5-5.1); SODIUM SERUM 142 mmol/L (136-145); UREA NITROGEN, BLOOD 4 mg/dL (7-18)
[2024-06-22 07:51] LABS: FERRITIN 188 ng/mL (8-388)
[2024-06-22 08:26] LABS: RHEUMATOID FACTOR SCREEN NEGATIVE (NEGATIVE)
[2024-06-22 09:11] LABS: C-REACTIVE PROTEIN 1.68 mg/dL (0.0-0.30)
[2024-06-22 09:26] LABS: IRON, SERUM 37 ug/dl (50-175); TOTAL IRON BINDING CAPACITY 210 ug/dl (250-450)
[2024-06-22] MEDS: SOD FERRIC GLUC 125 MG in IV NS 0.9% 100 ML IV SCH (14:42)
[2024-06-22 15:55] VITALS: BP 104/46; TEMP 97.5; O2SAT 96
[2024-06-22] MEDS: POTASSIUM CHLORIDE 20 MEQ TAB.PRT.SR PO ONE (16:08)
[2024-06-22 20:00] VITALS: BP 107/47; TEMP 99; O2SAT 95
[2024-06-23 06:45] LABS: BASOPHILS % (AUTO) 0.3 % (0.0-2.0); HEMATOCRIT 34 % (33-45); HEMOGLOBIN 10.6 g/dL (11.5-14.8); LYMPHOCYTES # (AUTO) 0.7 K/uL (0.8-4.8); LYMPHOCYTES % (AUTO) 3.7 % (20.0-44.0); MEAN CORPUSCULAR HEMOGLOBIN 29 PG (26.0-33.0); MEAN CORPUSCULAR HGB CONC 32 g/dl (31.0-36.0); MEAN CORPUSCULAR VOLUME 91 fL (82-100); MONOCYTES # (AUTO) 0.4 K/uL (0.1-1.30); MONOCYTES % (AUTO) 2.5 % (2.0-12.0); NEUTROPHILS # (AUTO) 16.5 K/uL (1.8-8.9); NEUTROPHILS % (AUTO) 93.5 % (43.0-81.0); PLATELET COUNT (AUTO) 204 K/uL (150-450); RED BLOOD CELL COUNT(AUTO) 3.68 MIL/uL (4.0-5.2); RED CELL DISTRIBUTION WIDTH 16.4 % (11.5-15.0); WHITE BLOOD COUNT (AUTO) 17.7 K/uL (4.3-11.0)
[2024-06-23 07:16] LABS: CALCIUM, SERUM 8.8 mg/dL (8.5-10.1); CARBON DIOXIDE 29 mmol/L (21-32); CHLORIDE 108 mmol/L (98-107); CREATININE 0.2 mg/dL (0.6-1.3); GLUCOSE 138 mg/dL (74-106); POTASSIUM 4.4 mmol/L (3.5-5.1); SODIUM SERUM 141 mmol/L (136-145); UREA NITROGEN, BLOOD 7 mg/dL (7-18)
[2024-06-23 07:17] VITALS: O2SAT 95
[2024-06-23 08:00] VITALS: BP 139/119; TEMP 97.9; O2SAT 93
[2024-06-23 08:08] LABS: IMMUNOGLOBULIN A, SERUM 309 mg/dL (64-422); IMMUNOGLOBULIN G, SERUM 763 mg/dL (586-1602); IMMUNOGLOBULIN M, SERUM 127 mg/dL (26-217)
[2024-06-23 08:24] VITALS: O2SAT 95
[2024-06-23 09:09] LABS: HEPATITIS B SURFACE AB Non Reactive (.)
[2024-06-23 12:09] LABS: *ANA ANTI-CENTROMERE B AB <0.2 AI (0.0-0.9); *ANA ANTI-DNA(DS) AB, QN <1 IU/mL (0-9); *ANA ANTI-JO-1 <0.2 AI (0.0-0.9); *ANA ANTICHROMATIN ANTIBODY <0.2 AI (0.0-0.9); *ANA RNP ANTIBODIES 0.5 AI (0.0-0.9); *ANA SJOGREN'S ANTI-SS-A 2.4 AI (0.0-0.9); *ANA SJOGREN'S ANTI-SS-B <0.2 AI (0.0-0.9); *ANAANTI-SCLERODERMA-70 AB <0.2 AI (0.0-0.9); *ANASMITH AB <0.2 AI (0.0-0.9)
[2024-06-23 14:07] LABS: *SPE A/G RATIO 0.8 (0.7-1.7); *SPE ALBUMIN 2.1 g/dL (2.9-4.4); *SPE ALPHA-1-GLOBULIN 0.3 g/dL (0.0-0.4); *SPE ALPHA-2-GLOBULIN 0.5 g/dL (0.4-1.0); *SPE BETA GLOBULIN 0.9 g/dL (0.7-1.3); *SPE GLOBULIN, TOTAL 2.5 g/dL (2.2-3.9); *SPE M-SPIKE Not Observed g/dL (Not Observed); *SPE PROTEIN TOTAL 4.6 g/dL (6.0-8.5); *SPEGAMMA GLOBULIN 0.8 g/dL (0.4-1.8); FREE KAPPA LT CHAINS SERUM 17.5 mg/L (3.3-19.4); FREE LAMBDA LT CHAIN SERUM 14.8 mg/L (5.7-26.3); KAPPA/LAMBDA RATIO SERUM 1.18 (0.26-1.65)
[2024-06-23] MEDS ORDERED: IOHEXOL-300 100 ML VIAL IV ONE (14:16)
[2024-06-23] MEDS ORDERED: CT SWABBABLE VALVE TRANS SET 1 EA INFUS.SET MC ONE (14:16)
[2024-06-23] MEDS ORDERED: IV NS 0.9% 250 ML IV ONE (14:16)
[2024-06-23 16:00] VITALS: BP 126/62; TEMP 98.8; O2SAT 92
== END 2024-06-23 19:20 | DRG 689 ==
LOC: ER 21:55 → TELE 06-19 02:21 → MED 06-22 10:29
PROVIDERS: ADMIT Internal Medicine
DX: N39.0 Urinary tract infection, site not specified (principal); G93.41 Metabolic encephalopathy; I50.32 Chronic diastolic (congestive) heart failure; E87.20 Acidosis, unspecified; I11.0 Hypertensive heart disease with heart failure; F03.90 Unspecified dementia, unspecified severity, without behavioral disturbance, psychotic disturbance, mood disturbance, and anxiety; R31.0 Gross hematuria; E88.09 Other disorders of plasma-protein metabolism, not elsewhere classified; J44.9 Chronic obstructive pulmonary disease, unspecified; Z88.2 Allergy status to sulfonamides; Z87.891 Personal history of nicotine dependence; Z87.440 Personal history of urinary (tract) infections; Z79.899 Other long term (current) drug therapy; R74.01 Elevation of levels of liver transaminase levels; L27.1 Localized skin eruption due to drugs and medicaments taken internally; T36.8X5A Adverse effect of other systemic antibiotics, initial encounter; Y92.89 Other specified places as the place of occurrence of the external cause; D64.9 Anemia, unspecified; D72.829 Elevated white blood cell count, unspecified; S30.95XA Unspecified superficial injury of vagina and vulva, initial encounter; X58.XXXA Exposure to other specified factors, initial encounter; Y93.9 Activity, unspecified; Y92.129 Unspecified place in nursing home as the place of occurrence of the external cause; N93.9 Abnormal uterine and vaginal bleeding, unspecified
CPT/HCPCS: 36415; 71045-TC; 76856-TC; 80048-TC; 80053-TC; 80076-TC; 80202-TC; 81001; 82248-TC; 82378; 82607-TC; 82728-TC; 82784; 83540-TC; 83605-TC; 83735-TC; 83880; 84100-TC; 84155; 84165; 84443-TC; 84484-TC; 85025-TC; 85610-TC; 86140-TC; 86225; 86235; 86334; 86431-TC; 86706; 86803; 87040-TC; 87086-TC; 87340; 94799-TC; A4223; G0378; J2185; J2543; J2916; J3370; J7030; J7050; J7060; Q9967

== ENCOUNTER 2024-07-16 09:10 | Inpatient (IN) | payer MEDICARE, OTHER ==
[~2024-07-16] VITALS: Ht 152.4 cm; Wt 79.8 kg
[2024-07-16] MEDS: IV NS 0.9% 1,000 ML BAG IV ONE (09:38)
[2024-07-16 10:00] LABS: BASOPHILS # (AUTO) 0.1 K/uL (0.0-0.2); BASOPHILS % (AUTO) 0.6 % (0.0-2.0); EOSINOPHILS # (AUTO) 0.3 K/uL (0.0-0.7); EOSINOPHILS % (AUTO) 2.5 % (0.0-6.0); HEMATOCRIT 44 % (33-45); HEMOGLOBIN 13.9 g/dL (11.5-14.8); LYMPHOCYTES # (AUTO) 1.9 K/uL (0.8-4.8); LYMPHOCYTES % (AUTO) 18.6 % (20.0-44.0); MEAN CORPUSCULAR HEMOGLOBIN 29 PG (26.0-33.0); MEAN CORPUSCULAR HGB CONC 32 g/dl (31.0-36.0); MEAN CORPUSCULAR VOLUME 91 fL (82-100); MONOCYTES # (AUTO) 0.6 K/uL (0.1-1.30); MONOCYTES % (AUTO) 5.8 % (2.0-12.0); NEUTROPHILS # (AUTO) 7.4 K/uL (1.8-8.9); NEUTROPHILS % (AUTO) 72.5 % (43.0-81.0); PLATELET COUNT (AUTO) 244 K/uL (150-450); RED BLOOD CELL COUNT(AUTO) 4.85 MIL/uL (4.0-5.2); RED CELL DISTRIBUTION WIDTH 15.7 % (11.5-15.0); WHITE BLOOD COUNT (AUTO) 10.3 K/uL (4.3-11.0)
[2024-07-16 10:12] LABS: CALCIUM, SERUM 8.9 mg/dL (8.5-10.1); CARBON DIOXIDE 39 mmol/L (21-32); CHLORIDE 107 mmol/L (98-107); CREATININE 0.4 mg/dL (0.6-1.3); GLUCOSE 75 mg/dL (74-106); POTASSIUM 3.2 mmol/L (3.5-5.1); SODIUM SERUM 148 mmol/L (136-145); UREA NITROGEN, BLOOD 10 mg/dL (7-18)
[2024-07-16 10:15] LABS: INR 1.2 (0.91-1.10); PARTIAL THROMBOPLASTIN TIME 23.7 SEC (24.3-34.3); PROTHROMBIN TIME 12.6 SECS (9.2-11.1)
[2024-07-16 10:22] LABS: ALANINE AMINOTRANSFERASE 55 U/L (12-78); ALKALINE PHOSPHATASE 164 U/L (46-116); ASPARTATE AMINOTRANSFERASE 43 U/L (15-37); BILIRUBIN,DIRECT 0.4 mg/dL (0.0-0.2); BILIRUBIN,TOTAL 0.7 mg/dL (0.2-1.0); TOTAL PROTEIN, SERUM 6.2 g/dL (6.4-8.2)
[2024-07-16 10:30] LABS: APPEARANCE,URINE TURBID (CLEAR); BILIRUBIN,URINE 1+ (NEGATIVE); BLOOD, URINE TRACE-INTA Ery/uL (NEGATIVE); COLOR,URINE DARK YELLOW (YELLOW); KETONES,URINE TRACE mg/dL (NEGATIVE); LEUKOCYTE ESTERASE ,URINE 2+ (NEGATIVE); NITRITE, URINE NEGATIVE (NEGATIVE); PROTEIN,URINE TRACE mg/dl (NEGATIVE); UGLUCOSE NEGATIVE (NEGATIVE)
[2024-07-16 10:39] LABS: ADD URINE CULTURE YES; BACTERIA,URINE 1+ /HPF (None Seen); URINE AMORPHOUS URATE Few /HPF (None Seen); YEAST,URINE Moderate /HPF (None Seen)
[2024-07-16] MEDS ORDERED: CEFTRIAXONE 1GM BAG (ER ONLY) 50 ML IV ONE (11:15)
[2024-07-16] MEDS: CEFTRIAXONE 1GM BAG (ER ONLY) 1 GM/50 ML PIGGYBACK IV ONE (11:23)
[2024-07-16] MEDS ORDERED: CLON0.5T4 PO (12:34)
[2024-07-16] MEDS ORDERED: CHOL100043 PO (12:34)
[2024-07-16] MEDS ORDERED: SIMV20TA2 PO (12:34)
[2024-07-16] MEDS ORDERED: TAMS-12 PO (12:34)
[2024-07-16] MEDS ORDERED: FAMO20TA80 PO (12:34)
[2024-07-16] MEDS ORDERED: METO25TA6 PO (12:34)
[2024-07-16] MEDS ORDERED: LEVO50TA8 PO (12:34)
[2024-07-16] MEDS ORDERED: CETI10TA14 PO (12:34)
[2024-07-16] MEDS ORDERED: LISI10TA29 PO (12:34)
[2024-07-16] MEDS ORDERED: ALBU8.5H8 IH (12:34)
[2024-07-16 13:30] VITALS: BP 92/66; TEMP 98.4; O2SAT 94
[2024-07-16 16:00] VITALS: BP 101/57; TEMP 98.9; O2SAT 97
[2024-07-16 20:00] VITALS: BP 135/90; TEMP 97.8; O2SAT 93
[2024-07-16] MEDS ORDERED: clonazePAM 0.5 MG TABLET PO PRN (22:00)
[2024-07-16] MEDS ORDERED: Medication Not On Formulary EA (Melatonin 10 MG) PO SCH (22:00)
[2024-07-16] MEDS: SIMVASTATIN 20 MG TABLET PO SCH (22:28)
[2024-07-16] MEDS: TAMSULOSIN 0.4 MG CAP.SR.24H PO SCH (22:28)
[2024-07-16] MEDS ORDERED: ONDANSETRON HCL/PF 4 MG/2 ML VIAL IVP PRN (23:00)
[2024-07-16] MEDS ORDERED: IV NS 0.9% 1,000 ML IV PRN (23:00)
[2024-07-16] MEDS ORDERED: ALBUTEROL FS 2.5 MG/3 ML VIAL.NEB NEB PRN (23:00)
[2024-07-16] MEDS ORDERED: Z GUARD REMEDY 4 OZ OINT TP PRN (23:00)
[2024-07-17] MEDS: POTASSIUM CHLORIDE 20 MEQ POWDER PACKET PO ONE (01:37)
[2024-07-17 07:17] LABS: BASOPHILS # (AUTO) 0.1 K/uL (0.0-0.2); BASOPHILS % (AUTO) 0.5 % (0.0-2.0); EOSINOPHILS # (AUTO) 0.2 K/uL (0.0-0.7); EOSINOPHILS % (AUTO) 1.5 % (0.0-6.0); HEMATOCRIT 42 % (33-45); LYMPHOCYTES # (AUTO) 1.5 K/uL (0.8-4.8); LYMPHOCYTES % (AUTO) 10.2 % (20.0-44.0); MEAN CORPUSCULAR HEMOGLOBIN 28 PG (26.0-33.0); MEAN CORPUSCULAR HGB CONC 31 g/dl (31.0-36.0); MEAN CORPUSCULAR VOLUME 89 fL (82-100); MONOCYTES # (AUTO) 0.7 K/uL (0.1-1.30); MONOCYTES % (AUTO) 5.1 % (2.0-12.0); NEUTROPHILS % (AUTO) 82.7 % (43.0-81.0); PLATELET COUNT (AUTO) 227 K/uL (150-450); RED BLOOD CELL COUNT(AUTO) 4.66 MIL/uL (4.0-5.2); RED CELL DISTRIBUTION WIDTH 15.2 % (11.5-15.0); WHITE BLOOD COUNT (AUTO) 14.5 K/uL (4.3-11.0)
[2024-07-17 07:30] VITALS: BP 119/71; TEMP 99; O2SAT 90
[2024-07-17] MEDS ORDERED: PANTOPRAZOLE 40 MG TABLET.DR PO SCH (07:30)
[2024-07-17 07:57] LABS: CALCIUM, SERUM 8.9 mg/dL (8.5-10.1); CARBON DIOXIDE 31 mmol/L (21-32); CHLORIDE 108 mmol/L (98-107); CREATININE 0.4 mg/dL (0.6-1.3); GLUCOSE 85 mg/dL (74-106); MAGNESIUM 1.5 mg/dL (1.8-2.4); PHOSPHORUS 2.5 mg/dL (2.5-4.9); POTASSIUM 3.4 mmol/L (3.5-5.1); SODIUM SERUM 146 mmol/L (136-145); UREA NITROGEN, BLOOD 6 mg/dL (7-18)
[2024-07-17] MEDS: LEVOTHYROXINE SODIUM 50 MCG TABLET PO SCH (08:11)
[2024-07-17] MEDS: cetrizine 10 MG TABLET PO SCH (08:11)
[2024-07-17] MEDS: GABAPENTIN 300 MG CAPSULE PO SCH (08:11)
[2024-07-17] MEDS: PANTOPRAZOLE 40 MG TABLET.DR PO SCH (08:11)
[2024-07-17] MEDS: ASPIRIN EC 81 MG TABLET.DR PO SCH (08:11)
[2024-07-17] MEDS: CHOLECALCIFEROL 1,000 UNIT TABLET (VIT D3) PO SCH (08:11)
[2024-07-17] MEDS: LISINOPRIL (10MG) 10 MG TABLET PO SCH (08:12)
[2024-07-17] MEDS: ACETAMINOPHEN 325 MG TABLET PO PRN (08:12)
[2024-07-17] MEDS: FAMOTIDINE (20 MG) 20 MG TABLET PO SCH (08:12)
[2024-07-17] MEDS: METOPROLOL TARTRATE 25 MG TABLET PO SCH (08:12)
[2024-07-17] MEDS: ENOXAPARIN SODIUM 40 MG/0.4 ML DISP.SYRIN SQ SCH (08:15)
[2024-07-17 08:57] LABS: CHOLESTEROL 123 mg/dL (<200); HDL CHOLESTEROL 40 mg/dL (40-60); LDL 72 mg/dL (0-99); TRIGLYCERIDES 70 mg/dL (30-150)
[2024-07-17] MEDS: CEFTRIAXONE 1 G in IV D5W 50 ML IV SCH (09:31)
[2024-07-17] MEDS: MAGNESIUM OXIDE 400 MG TABLET PO ONE (10:04)
[2024-07-17 16:00] VITALS: BP 90/52; TEMP 98.6; O2SAT 92
[2024-07-17 20:00] VITALS: BP 93/52; TEMP 97.7; O2SAT 97
[2024-07-17] MEDS: IV 1/2NS 1000 ML 1,000 ML IV SCH (20:00)
[2024-07-18 05:16] VITALS: O2SAT 98
[2024-07-18 08:00] VITALS: BP 97/68; TEMP 98.2; O2SAT 97
[2024-07-18] MEDS: PROSOURCE / PROSTAT (PYXIS) 30 ML UDC PO SCH (10:30)
[2024-07-18] MEDS: ARGININE/GLUTAMINE/CALCIUM BMB 1 EACH POWD.PACK PO SCH (10:30)
[2024-07-18] MEDS: THERAHONEY GEL 1.5 OZ TUBE TP SCH (10:37)
[2024-07-18] MEDS ORDERED: POTASSIUM CHLORIDE 20 MEQ POWDER PACKET PO ONE (18:00)
[2024-07-18 18:20] VITALS: BP 92/61; TEMP 98.2; O2SAT 97
[2024-07-18 18:35] LABS: CALCIUM, SERUM 7.8 mg/dL (8.5-10.1); CARBON DIOXIDE 36 mmol/L (21-32); CHLORIDE 105 mmol/L (98-107); CREATININE 0.5 mg/dL (0.6-1.3); GLUCOSE 144 mg/dL (74-106); MAGNESIUM 1.5 mg/dL (1.8-2.4); POTASSIUM 3.6 mmol/L (3.5-5.1); SODIUM SERUM 140 mmol/L (136-145); UREA NITROGEN, BLOOD 9 mg/dL (7-18)
[2024-07-18] MEDS: Magnesium 1GM/D5W 100ML PREMIX 100 ML IV SCH (18:56)
[2024-07-18 20:00] VITALS: BP 99/61; TEMP 98.8; O2SAT 94
[2024-07-18] MEDS: MUPIROCIN OINT 2% 22 GM TUBE NS SCH (21:20)
[2024-07-18 21:56] VITALS: O2SAT 98
[2024-07-19] MEDS: IV 1/2NS 1000 ML 1,000 ML IV PRN (03:58)
[2024-07-19 06:43] LABS: BASOPHILS # (AUTO) 0.1 K/uL (0.0-0.2); BASOPHILS % (AUTO) 0.6 % (0.0-2.0); EOSINOPHILS # (AUTO) 0.5 K/uL (0.0-0.7); EOSINOPHILS % (AUTO) 4.7 % (0.0-6.0); HEMATOCRIT 35 % (33-45); HEMOGLOBIN 11.4 g/dL (11.5-14.8); LYMPHOCYTES # (AUTO) 1.9 K/uL (0.8-4.8); MEAN CORPUSCULAR HEMOGLOBIN 29 PG (26.0-33.0); MEAN CORPUSCULAR HGB CONC 32 g/dl (31.0-36.0); MEAN CORPUSCULAR VOLUME 89 fL (82-100); MONOCYTES # (AUTO) 0.8 K/uL (0.1-1.30); MONOCYTES % (AUTO) 7.9 % (2.0-12.0); NEUTROPHILS # (AUTO) 6.9 K/uL (1.8-8.9); NEUTROPHILS % (AUTO) 67.8 % (43.0-81.0); PLATELET COUNT (AUTO) 191 K/uL (150-450); RED BLOOD CELL COUNT(AUTO) 3.97 MIL/uL (4.0-5.2); RED CELL DISTRIBUTION WIDTH 15.5 % (11.5-15.0); WHITE BLOOD COUNT (AUTO) 10.1 K/uL (4.3-11.0)
[2024-07-19 07:00] VITALS: BP 116/58; TEMP 98.6; O2SAT 98
[2024-07-19 08:01] LABS: CALCIUM, SERUM 7.9 mg/dL (8.5-10.1); CARBON DIOXIDE 34 mmol/L (21-32); CHLORIDE 102 mmol/L (98-107); CREATININE 0.5 mg/dL (0.6-1.3); GLUCOSE 81 mg/dL (74-106); MAGNESIUM 2.3 mg/dL (1.8-2.4); PHOSPHORUS 2.4 mg/dL (2.5-4.9); POTASSIUM 3.5 mmol/L (3.5-5.1); SODIUM SERUM 139 mmol/L (136-145); UREA NITROGEN, BLOOD 8 mg/dL (7-18)
[2024-07-19 16:00] VITALS: BP 88/56; TEMP 98.4; O2SAT 96
[2024-07-19] MEDS: K PHOS NEUTRAL 250 MG TABLET PO ONE (16:06)
[2024-07-19 20:16] VITALS: BP 92/45; TEMP 97.5; O2SAT 96
[2024-07-19 22:01] VITALS: O2SAT 98
[2024-07-20 08:00] VITALS: BP 114/98; TEMP 98.7; O2SAT 98
[2024-07-20 10:11] LABS: BASOPHILS # (AUTO) 0.1 K/uL (0.0-0.2); BASOPHILS % (AUTO) 0.7 % (0.0-2.0); EOSINOPHILS # (AUTO) 0.3 K/uL (0.0-0.7); EOSINOPHILS % (AUTO) 2.2 % (0.0-6.0); HEMATOCRIT 36 % (33-45); HEMOGLOBIN 11.4 g/dL (11.5-14.8); LYMPHOCYTES # (AUTO) 1.8 K/uL (0.8-4.8); LYMPHOCYTES % (AUTO) 11.7 % (20.0-44.0); MEAN CORPUSCULAR HEMOGLOBIN 28 PG (26.0-33.0); MEAN CORPUSCULAR HGB CONC 31 g/dl (31.0-36.0); MEAN CORPUSCULAR VOLUME 89 fL (82-100); MONOCYTES % (AUTO) 6.4 % (2.0-12.0); NEUTROPHILS # (AUTO) 11.9 K/uL (1.8-8.9); PLATELET COUNT (AUTO) 215 K/uL (150-450); WHITE BLOOD COUNT (AUTO) 15.1 K/uL (4.3-11.0)
[2024-07-20 10:28] LABS: CALCIUM, SERUM 8.1 mg/dL (8.5-10.1); CARBON DIOXIDE 36 mmol/L (21-32); CHLORIDE 105 mmol/L (98-107); CREATININE 0.4 mg/dL (0.6-1.3); GLUCOSE 125 mg/dL (74-106); MAGNESIUM 2.1 mg/dL (1.8-2.4); PHOSPHORUS 2.7 mg/dL (2.5-4.9); POTASSIUM 3.4 mmol/L (3.5-5.1); SODIUM SERUM 141 mmol/L (136-145); UREA NITROGEN, BLOOD 10 mg/dL (7-18)
[2024-07-20 16:00] VITALS: BP 104/54; TEMP 98.4; O2SAT 97
[2024-07-20] MEDS: POTASSIUM CHLORIDE 20 MEQ TAB.PRT.SR PO ONE (17:50)
[2024-07-20] MEDS: IV NS 0.9% 500 ML BAG IV ONE (21:06)
[2024-07-21] VITALS: BP 99/63; TEMP 98.2; O2SAT 94
[2024-07-21 06:18] LABS: BASOPHILS # (AUTO) 0.1 K/uL (0.0-0.2); BASOPHILS % (AUTO) 0.5 % (0.0-2.0); EOSINOPHILS # (AUTO) 0.5 K/uL (0.0-0.7); EOSINOPHILS % (AUTO) 3.3 % (0.0-6.0); HEMATOCRIT 35 % (33-45); HEMOGLOBIN 11.1 g/dL (11.5-14.8); LYMPHOCYTES # (AUTO) 1.9 K/uL (0.8-4.8); LYMPHOCYTES % (AUTO) 12.2 % (20.0-44.0); MEAN CORPUSCULAR HEMOGLOBIN 28 PG (26.0-33.0); MEAN CORPUSCULAR HGB CONC 32 g/dl (31.0-36.0); MEAN CORPUSCULAR VOLUME 89 fL (82-100); MONOCYTES # (AUTO) 0.9 K/uL (0.1-1.30); MONOCYTES % (AUTO) 5.8 % (2.0-12.0); NEUTROPHILS # (AUTO) 12.3 K/uL (1.8-8.9); NEUTROPHILS % (AUTO) 78.2 % (43.0-81.0); PLATELET COUNT (AUTO) 216 K/uL (150-450); RED BLOOD CELL COUNT(AUTO) 3.92 MIL/uL (4.0-5.2); RED CELL DISTRIBUTION WIDTH 15.3 % (11.5-15.0); WHITE BLOOD COUNT (AUTO) 15.7 K/uL (4.3-11.0)
[2024-07-21 07:10] LABS: CALCIUM, SERUM 8.1 mg/dL (8.5-10.1); CARBON DIOXIDE 33 mmol/L (21-32); CHLORIDE 102 mmol/L (98-107); CREATININE 0.4 mg/dL (0.6-1.3); GLUCOSE 94 mg/dL (74-106); MAGNESIUM 1.6 mg/dL (1.8-2.4); PHOSPHORUS 2.6 mg/dL (2.5-4.9); POTASSIUM 3.4 mmol/L (3.5-5.1); SODIUM SERUM 140 mmol/L (136-145); UREA NITROGEN, BLOOD 10 mg/dL (7-18)
[2024-07-21 08:24] VITALS: BP 113/70; TEMP 99; O2SAT 95
[2024-07-21] MEDS: MAGNESIUM OXIDE 400 MG TABLET PO ONE (09:58)
[2024-07-21] MEDS: POTASSIUM CHLORIDE 20 MEQ TAB.PRT.SR PO SCH (09:58)
[2024-07-21] MEDS ORDERED: MUPI22OI7 NS (10:56)
[2024-07-21] MEDS ORDERED: NUTR1PAC14 PO (10:56)
[2024-07-21] MEDS ORDERED: NITR100C6 PO (10:57)
== END 2024-07-21 12:15 | disposition home health service (06) | DRG 871 ==
LOC: ER 09:23 → MED 11:52
PROVIDERS: ADMIT Nurse Practitioner Acute Care; ATTEND Nurse Practitioner Family
DX: A41.9 Sepsis, unspecified organism (principal); G93.41 Metabolic encephalopathy; L89.153 Pressure ulcer of sacral region, stage 3; N39.0 Urinary tract infection, site not specified; E44.0 Moderate protein-calorie malnutrition; E87.0 Hyperosmolality and hypernatremia; E87.20 Acidosis, unspecified; F05 Delirium due to known physiological condition; I50.32 Chronic diastolic (congestive) heart failure; D68.9 Coagulation defect, unspecified; E03.9 Hypothyroidism, unspecified; E66.9 Obesity, unspecified; E86.0 Dehydration; E87.6 Hypokalemia; E88.09 Other disorders of plasma-protein metabolism, not elsewhere classified; J44.9 Chronic obstructive pulmonary disease, unspecified; Z87.440 Personal history of urinary (tract) infections; Z87.891 Personal history of nicotine dependence; Z88.2 Allergy status to sulfonamides; Z99.3 Dependence on wheelchair; F03.90 Unspecified dementia, unspecified severity, without behavioral disturbance, psychotic disturbance, mood disturbance, and anxiety; I11.0 Hypertensive heart disease with heart failure; R74.01 Elevation of levels of liver transaminase levels; Z68.34 Body mass index [BMI] 34.0-34.9, adult; R53.1 Weakness; L98.8 Other specified disorders of the skin and subcutaneous tissue; B96.20 Unspecified Escherichia coli [E. coli] as the cause of diseases classified elsewhere; L89.156 Pressure-induced deep tissue damage of sacral region; Z20.822 Contact with and (suspected) exposure to COVID-19
CPT/HCPCS: 36415; 71045-TC; 80048-TC; 80061-TC; 80076-TC; 81001; 83605-TC; 83735-TC; 84100-TC; 84484-TC; 85025-TC; 85730-TC; 87040-TC; 87081-TC; 87086-TC; 94761-TC; 94799-TC; 97112-TC; 97530-TC; A4223; G0378; J0696; J1650; J3475; J3490; J7040; J7060